=== PATIENT | female | born 2000 | race Caucasian/White ===

== ENCOUNTER 2023-03-29 02:27 | Emergency (ER) | payer OTHER, BC ==
[2023-03-29] MEDS ORDERED: Octyl 2-Cyanoacrylate 1 g/1 mL 1 APPLIC PEN TOP ONE (02:53)
== END 2023-03-29 03:15 | disposition home or self-care (01) ==
LOC: MW.ED 02:27
DX: S61.211A Laceration without foreign body of left index finger without damage to nail, initial encounter (principal); Z88.0 Allergy status to penicillin; Z88.1 Allergy status to other antibiotic agents; W25.XXXA Contact with sharp glass, initial encounter
CPT/HCPCS: 12001; 99282; A9270; 99283

== ENCOUNTER 2023-12-23 17:01 | Emergency (ER) | payer OTHER, BC ==
[2023-12-23] MEDS: Morphine 4 MG/ML Syringe IVPUSH STA (17:55)
[2023-12-23] MEDS: Ondansetron 4 MG/2 ML SDV IVPUSH STA ×2 (17:56→22:18)
[2023-12-23 18:05] LABS: BASOPHILS ABSOLUTE AUTO 0.05 K/uL (0.00-0.20); BASOPHILS PERCENT AUTO 0.5 % (0.0-1.0); EOSINOPHILS ABSOLUTE AUTO 0.13 K/uL (0.00-0.45); EOSINOPHILS PERCENT AUTO 1.2 % (0.0-6.0); HEMATOCRIT 39.6 % (37.0-47.0); HEMOGLOBIN 14.2 g/dL (12.0-16.0); IMMATURE GRAN ABSOLUTE AUTO 0.03 K/uL (0.00-0.05); IMMATURE GRAN PERCENT AUTO 0.3 % (0.0-0.4); LYMPHOCYTES ABSOLUTE AUTO 2.08 K/uL (1.00-4.80); LYMPHOCYTES PERCENT AUTO 19.2 % (24.0-44.0); MEAN CORPUSCULAR HEMOGLOBIN 31.5 pg (28.0-32.0); MEAN CORPUSCULAR HGB CONC 35.9 g/dL (32.0-36.0); MEAN CORPUSCULAR VOLUME 87.8 fL (83.0-99.0); MEAN PLATELET VOLUME 9.6 fL (9.4-12.3); MONOCYTES ABSOLUTE AUTO 0.51 K/uL (0.00-0.80); MONOCYTES PERCENT AUTO 4.7 % (0.0-8.0); NEUTROPHILS ABSOLUTE AUTO 8.04 K/uL (1.80-7.70); NEUTROPHILS PERCENT AUTO 74.1 % (41.0-71.0); PLATELET COUNT,PLT 260 K/uL (150-400); RED BLOOD CELL COUNT 4.51 M/uL (4.10-5.30); WHITE BLOOD CELL COUNT,WBC 10.84 K/uL (3.9-11.3)
[2023-12-23] MEDS: HYDROmorphone 0.5 MG/0.5 ML Syringe IVPUSH STA (18:22)
[2023-12-23 18:49] LABS: A/G RATIO 1.2 (0.9-1.6); ALBUMIN 4.2 g/dL (3.4-5.0); BILIRUBIN TOTAL 0.3 mg/dL (0.2-1.0); CALCIUM 9.6 mg/dL (8.5-10.1); CARBON DIOXIDE,CO2 29.6 mmol/L (21.0-32.0); CREATININE 0.9 mg/dL (0.6-1.0); EST CRCL DRUG DOSING (CG) 101.6 mL/min; POTASSIUM,K 3.8 mmol/L (3.5-5.1); PROTEIN TOTAL,TP 7.6 g/dL (6.4-8.2)
[2023-12-23] MEDS: HYDROmorphone 1 MG/ML Syringe IVPUSH STA (20:38)
[2023-12-23] MEDS: Iopamidol 755 MG/ML 500 ML Multipack Bottle IVPUSH ONE (21:08)
[2023-12-23] MEDS: Ketorolac 30 MG/ML SDV IVPUSH ONE (23:17)
[2023-12-23] MEDS: Acetaminophen 325 MG Tab PO ONE (23:18)
[2023-12-23] MEDS: Ketorolac 30 MG/ML SDV IM ONE (23:20)
== END 2023-12-24 00:36 | disposition home or self-care (01) ==
LOC: MW.ED 17:01
DX: R10.2 Pelvic and perineal pain (principal); Z79.899 Other long term (current) drug therapy; Z88.0 Allergy status to penicillin; Z88.8 Allergy status to other drugs, medicaments and biological substances; Z75.8 Other problems related to medical facilities and other health care
CPT/HCPCS: 36415; 72170; 73552; 73590; 74177; 80053; 84703; 85025; 96372; 96374; 96375; 96376; 99284; A9270; J1171; J1885; J2270; J2405; Q9967